=== PATIENT | male | born 1945 | race Hispanic/Latino ===

== ENCOUNTER → 2020-03-18 09:58 | Outpatient (CLI) | payer MEDICARE, SELFPAY ==
--- NOTE | 2020-03-18 20:17 | DI.NM.S_ITS ---
DATE OF SERVICE: 03/18/2020 PROCEDURE: Exercise perfusion study. INDICATION: AFib. RADIOPHARMACEUTICAL: 25.3 millicurie technetium-99m Myoview IV was injected at stress and 11.9 millicurie technetium-99m Myoview IV was injected at rest. CARDIAC STRESS: The patient underwent exercise perfusion study under the supervision of attending staff. The patient walked on Preston protocol for 9 minutes 10 seconds and achieved 95 percent of target heart rate, normal blood pressure response. Baseline EKG revealed sinus rhythm with poor R-wave progression, frequent PACs, as well as PVCs. During stress, PVCs got suppressed. However, patient has frequent PACs. There is suspicion for recurrence of AFib during exercise. In recovery, rhythm was sinus with return of frequent PVCs, as well as PACs. No obvious ischemic changes. No sustained ventricular tachycardia or AFib. No chest pain or anginal symptoms. RAW DATA: There is increased subdiaphragmatic activity. During rest, there was motion artifact seen, as well. GATED STUDY: Stress LV ejection fraction 64 percent and resting LV ejection fraction 60 percent without any obvious wall motion abnormalities. Resting end- diastolic volume 141 mL. TID ratio 0.95, which is within normal limits. Lung/heart ratio 0.35, which is within normal limits. MYOCARDIAL PERFUSION: The stress supine images revealed a small size, mildly decreased perfusion of basal inferior wall and inferoapex. Resting supine images reveal moderate size, mildly decreased perfusion of inferior wall, as well as inferior septum. During prone images, inferior wall and inferior apical defect got significantly improved. However, during prone images, there was new perfusion defect of mid to distal anterior wall and distal anteroseptum, which was not seen during stress supine and resting supine. CONCLUSION: No obvious reversible ischemia. Inferior wall, inferior septal, and inferior apical defect, which was seen during stress supine and resting supine images got significantly improved during prone images suggestive of diaphragmatic tissue attenuation artifact. On prone images, there was new perfusion defect of distal anterior wall and distal anterior septum, which was not seen during stress supine images, likely shifting tissue attenuation artifact. The patient has good exercise tolerance. No anginal symptoms. Preserved left ventricular function. Frequent PACs and PVCs at rest and suspicion for a short burst of atrial fibrillation during exercise. No ventricular tachycardia or sustained atrial fibrillation. Clinical correlation is recommended. Duane Deal - RONAN/jojo/[place] doc#: [id number]/job#: [id number] dd: 03/18/2020 17:15:00 dt: 03/18/2020 20:04:00 DICTATING /COPIES TO: Stefano Hernandez MD COPIES MNE: NADINE;
== END ==
PROVIDERS: PCP Student in an Organized Health Care Education/Training Program; Referring Provider Student in an Organized Health Care Education/Training Program; Visit Provider Student in an Organized Health Care Education/Training Program
DX: I48.91 Unspecified atrial fibrillation (principal)
CPT/HCPCS: 78452; 93017; A9502

== ENCOUNTER 2021-10-03 14:34 | Emergency (ER) | payer MEDICARE, SELFPAY ==
[2021-10-03] VITALS (18 sets, daily range): BP systolic 121–182; BP diastolic 72–113; PULSE 47–56; RESP 16–18; TEMP 36.4; O2SAT 94–99; BMI 27.4
--- NOTE | 2021-10-03 14:43 | DI.CT.S_ITS ---
PROCEDURE: CT ANGIO HEAD AND NECK INDICATIONS: Vision change right eye TECHNIQUE: Pre-contrast 4.5 mm thick sections acquired from the foramen magnum to the vertex. After the administration of intravenous contrast, 1 mm thick sections acquired from the aortic arch through the Cheesh-Na of Wright. Post-contrast 4.5 mm thick sections then re-acquired from the foramen magnum to the vertex. 3-dimensional fwpfcpa-qqzesxssk-ofehlyjgwi (MIP) and/or volume rendering reformats were acquired of the central intracranial vasculature and neck separately. COMPARISON: None. FINDINGS: Image quality: Excellent. BRAIN: CSF spaces: Ventricles are normal in size and shape. Basal cisterns are patent. No extra-axial fluid collections. Brain: No midline shift. No intracranial bleeds or masses. Montoya-white matter interface appears intact. Skull and face: Calvarium and facial bones appear intact, without suspicious lesions. Orbits appear normal. Sinuses: Mucosal thickening noted in the maxillary sinuses. The mastoids are clear. HEAD CT ANGIOGRAPHY: Anterior circulation: Intracranial internal carotid arteries are normal in flow. Atherosclerotic calcifications noted in the clinoid segment of the right internal carotid artery which causes short segment, high-grade stenosis. The flow within the paired anterior cerebral arteries is normal and symmetric. The flow within the middle cerebral arteries is normal and symmetric. The anterior communicating artery is seen. No aneurysms are seen. Posterior circulation: Visualized portions of the vertebral arteries demonstrate normal caliber, and join to form a normal appearing basilar artery. Flow within the posterior cerebral arteries is normal and symmetric. No aneurysms are seen. Dural sinuses demonstrate normal postcontrast enhancement. NECK CT ANGIOGRAPHY: Carotid system: The great vessels demonstrate a conventional anatomy as they arise from the aortic arch. The origins of the common carotid arteries appear patent. The common carotid arteries demonstrate normal caliber and courses. Atherosclerotic calcification noted in the origin of the right internal carotid artery which causes high-grade, approximately 70% stenosis of the vessel. Atherosclerotic calcification noted in the origin of the left internal carotid artery which causes mild, less than 50% stenosis. Posterior circulation: Calcified atherosclerotic plaque noted in the origin of the right vertebral artery which causes [id number] narrowing of the vessel. Origin of the left vertebral artery is fully patent. Patient is right vertebral artery dominant. The more superior extracranial portions of both vertebral arteries also demonstrate normal courses and calibers. They join to form a normal appearing basilar artery. Soft tissues: Visualized neck soft tissues demonstrate no suspicious abnormalities. Patchy consolidation and ground-glass opacities noted in the lung apices, right greater than left. Bones: No suspicious bony lesions. Spine degenerative disc disease and facet arthropathy.Visualized cervical spine appears normally aligned. IMPRESSION: 1. No acute intracranial disease process. 2. No large vessel occlusion, vascular dissection or aneurysm. 3. High-grade, approximately 70% stenosis of the origin of the right internal carotid artery. 4. 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 5. 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 6. Patchy consolidation and ground-glass opacities in the lung apices suspicious for pneumonia. Any quantitative measurements of stenosis were performed using NASCET criteria. Dictated by: Nat Greer MD, PhD on 10/03/2021 at 16:36 Approved by: Nat Greer MD, PhD on 10/03/2021 at 16:45
--- NOTE | 2021-10-03 15:25 | PC.NURSE ---
right eye, visual field cut to medial lower corner, can recognize that bottoms of letters on eye chart are missing/blocked. eye exam performed whhile both eyes are dilated.
[2021-10-03 15:36] LABS: Add Manual Diff / Slide Review NO; Basophils Absolute Auto 100 /uL (0-100); Basophils Percent Auto 0.9 % (0-2); Eosinophils Absolute Auto 300 /uL (0-450); Eosinophils Percent Auto 4.5 % (2-4); Hematocrit 42.6 % (41-53); Hemoglobin 14.5 g/dL (13.5-17.5); Lymphocytes Absolute Auto 2000 /uL (1100-4500); Lymphocytes Percent Auto 34.1 % (25-40); Mean Corpuscular Hemoglobin 32.6 PG (26-34); Mean Corpuscular Volume 95.8 fL (80-100); Monocytes Absolute Auto 800 /uL (0-900); Neutrophils Absolute Auto 2800 /uL (1500-7000); Neutrophils Percent Auto 46.5 % (50-75); Platelet Count 171 X10^3/uL (150-400); Red Blood Cell Count 4.45 X10^6/uL (4.5-5.9); Red Cell Distribution Width 14.2 % (11.6-14.8)
--- NOTE | 2021-10-03 15:53 | ED_ITS ---
HPI - Neuro Symptoms/Deficit <Julio Man PA-C - Last Filed: 10/03/21 20:08> General Chief Complaint: Neuro Symptoms/Deficit Stated Complaint: Vascular Assesment, Possible Stroke in Rt Eye Time Seen by Provider: 10/03/21 15:04 Source: patient Mode of arrival: Ambulatory History of Present Illness HPI Narrative: Patient is a 76-year-old male with a history of atrial fibrillation presenting to the emergency department today for evaluation of right eye visual changes. Patient states that he 1st noticed the loss of vision in his left lower quadrant his right eye approximately 5 days ago. He states that he was at his ophthalmology appointment when he was urged to come to the emergency department. Of note, patient states that he stopped taking his daily dose of 325 mg of aspirin approximately 1 month ago and states that he has not been on any daily anticoagulation since. Patient denies fever, chills, chest pain, cough, shortness of breath, nausea, vomiting, diarrhea, abdominal pain, dysuria, hematu abigail, dizziness, lightheadedness, generalized weakness, slurred speech, diaphoresis, heart palpitations, syncope, increased confusion, behavior abnormalities, or any other concerning symptoms. No further concerns reports this time. On Anticoagulants: No Related Data Previous Rx's Medication Instructions Recorded atorvastatin 40 mg tablet 40 mg PO DAILY #40 tab 10/03/21 clopidogrel 75 mg tablet (Plavix) 75 mg PO DAILY #21 tab 10/03/21 Allergies Allergy/AdvReac Type Severity Reaction Status Date / Time No Known Drug Allergies Allergy Verified 10/03/21 14:42 Review of Systems <Julio Man PA-C - Last Filed: 10/03/21 20:08> Constitutional Constitutional: Denies chills, Denies fatigue, Denies fever(s), Denies frequent falls, Denies lethargy and Denies weakness Eyes Eyes: Reports change in vision (Loss of vision in left lower quadrant of right eye), Denies eye discharge, Denies irritation, Reports loss of vision (Loss of vision and left lower quadrant of right eye) and Denies eye pain ENT Ears, Nose, Mouth, and Throat: Denies dizziness and Denies neck pain Cardiovascular Cardiovascular: Denies chest pain, Denies irregular heart rhythm, Denies lightheadedness, Denies palpitations, Denies dyspnea, Denies dyspnea on exertion and Denies orthopnea Respiratory Respiratory: Denies cough, Denies dyspnea, Denies dyspnea on exertion and Denies wheezing Gastrointestinal Gastrointestinal: Denies abdominal pain, Denies change in bowel habits, Denies diarrhea, Denies nausea and Denies vomiting Genitourinary Genitourinary: Denies hematuria, Denies flank pain, Denies urinary incontinence and Denies urinary urgency Musculoskeletal Musculoskeletal: Denies back pain, Denies muscle weakness, Denies neck pain, Denies numbness and Denies tingling Integumentary/Breasts Skin/Breast: Denies pruritus, Denies erythema, Denies rash and Denies wounds Neurologic Neurologic: Denies behavioral changes, Denies confusion, Denies dizziness, Denies frequent falls, Reports loss of vision (Loss of vision and left lower quadrant of right eye), Denies numbness, Denies tingling and Denies weakness Psychiatric Psychiatric: Denies behavioral changes and Denies confusion Endocrine Endocrine: Denies fatigue and Denies palpitations Hematologic/Lymphatic On Anticoagulants: No Allergic/Immunologic Allergic/Immunologic: Denies wheezing Patient History <Julio Man PA-C - Last Filed: 10/03/21 20:08> Medical History Atrial fibrillation Bone tumor Gout Surgical History No pertinent past surgical history Family History (Updated 10/03/21 @ 18:55 by Grzegorz Falcon DO) Father Cancer Mother CVA (cerebral vascular accident) Social History Smoking Status: Former smoker Smoking Status: Former smoker tobacco type: pipe alcohol intake frequency: a few times a week Alcohol type: wine Substance Use Type: does not use Exam <Julio Man PA-C - Last Filed: 10/03/21 20:08> Narrative Exam Narrative: GENERAL: year old patient appears stated age. Well-developed patient, in no acute distress. HEAD: Atraumatic. Normocephalic. EYES: Pupils dilated (patient states that his eyes were dilated at ophthalmology appointment). Extraocular motions intact. No scleral icterus. No injection or drainage. ENT: Nose without bleeding, purulent drainage. Throat without erythema, tonsillar hypertrophy or exudate. Airway patent. NECK: Trachea midline. Non tender CARDIOVASCULAR: Rate irregularly irregular without murmurs, gallops, or rubs. RESPIRATORY: Clear to auscultation. Breath sounds equal bilaterally. No wheezes, rales, or rhonchi. GASTROINTESTINAL: Abdomen soft, non-tender, nondistended. EXTREMITIES: No edema or joint tenderness. BACK: Nontender without deformity or crepitance. No flank tenderness. NEURO: AOx3. SKIN: No rash or erythema of visible areas Initial Vital Signs Initial Vital Signs: Vital Signs Temperature 97.6 F 10/03/21 14:38 Pulse Rate 56 L 10/03/21 14:38 Respiratory Rate 16 10/03/21 14:38 Blood Pressure 135/79 10/03/21 14:38 Pulse Oximetry 99 10/03/21 14:38 <Susana Roberson DO - Last Filed: 10/04/21 07:09> Initial Vital Signs Initial Vital Signs: Vital Signs Temperature 97.6 F 10/03/21 14:38 Pulse Rate 56 L 10/03/21 14:38 Respiratory Rate 16 10/03/21 14:38 Blood Pressure 135/79 10/03/21 14:38 Pulse Oximetry 99 10/03/21 14:38 Course <Julio Man PA-C - Last Filed: 10/03/21 20:08> Course Course Narrative: CBC, CMP, urine drug screen, urinalysis, troponin, CK-MB, CTA of the head neck, COVID tests, EKG obtained. Treatment options discussed with Dr. Falcon and patient would prefer to not stay overnight for MRI in the morning. Orders Ordered: Discontinued Medications Aspirin (Aspirin 325 Mg Tablet) 325 mg PO NOW ONE Stop: 10/03/21 16:06 Last Admin: 10/03/21 16:50 Dose: 325 mg Documented by: LASHAWN Clopidogrel Bisulfate (Clopidogrel 75 Mg Tablet) 75 mg PO NOW ONE Stop: 10/03/21 18:51 Last Admin: 10/03/21 19:12 Dose: 75 mg Documented by: SYDNEY Consultations Consultation #1: Consultation with Dr. Falcon (hospitalist). States patient could stay overnight for MRI in the morning, or patient could be discharged with outpatient medication management. He states that he will come down to the emergency department to discuss medication options with the patient. He states after discussion patient would be appropriate for discharge. Time: 17:26 Vital Signs Vital signs: Vital Signs - 8 hr 10/03/21 14:38 10/03/21 15:27 10/03/21 15:28 Temperature 97.6 F Pulse Rate 56 L 51 L 54 L Respiratory Rate 16 17 Blood Pressure 135/79 126/77 Pulse Oximetry 99 97 97 10/03/21 15:30 10/03/21 15:44 10/03/21 16:00 Temperature Pulse Rate 49 L 51 L Respiratory Rate Blood Pressure 128/76 129/72 Pulse Oximetry 97 94 10/03/21 16:12 10/03/21 16:13 10/03/21 16:30 Temperature Pulse Rate 54 L 52 L 53 L Respiratory Rate 17 Blood Pressure 131/74 Pulse Oximetry 97 96 96 10/03/21 16:31 10/03/21 17:00 10/03/21 17:01 Temperature Pulse Rate 49 L 49 L 49 L Respiratory Rate 18 Blood Pressure 121/74 144/72 H Pulse Oximetry 95 95 95 10/03/21 17:30 10/03/21 17:31 10/03/21 18:00 Temperature Pulse Rate 48 L 49 L 54 L Respiratory Rate 16 16 Blood Pressure 164/79 H 174/89 H Pulse Oximetry 98 98 97 10/03/21 18:30 10/03/21 19:00 10/03/21 19:19 Temperature Pulse Rate 49 L 47 L Respiratory Rate Blood Pressure 182/113 H 176/88 H Pulse Oximetry 98 97 <Susana Roberson, DO - Last Filed: 10/04/21 07:09> Orders Ordered: Discontinued Medications Aspirin (Aspirin 325 Mg Tablet) 325 mg PO NOW ONE Stop: 10/03/21 16:06 Last Admin: 10/03/21 16:50 Dose: 325 mg Documented by: LASHAWN Clopidogrel Bisulfate (Clopidogrel 75 Mg Tablet) 75 mg PO NOW ONE Stop: 10/03/21 18:51 Last Admin: 10/03/21 19:12 Dose: 75 mg Documented by: SYDNEY Vital Signs Vital signs: Vital Signs - 8 hr 10/03/21 14:38 10/03/21 15:27 10/03/21 15:28 Temperature 97.6 F Pulse Rate 56 L 51 L 54 L Respiratory Rate 16 17 Blood Pressure 135/79 126/77 Pulse Oximetry 99 97 97 02/11/22 15:30 10/03/21 15:44 10/03/21 16:00 Temperature Pulse Rate 49 L 51 L Respiratory Rate Blood Pressure 128/76 129/72 Pulse Oximetry 97 94 10/03/21 16:12 10/03/21 16:13 10/03/21 16:30 Temperature Pulse Rate 54 L 52 L 53 L Respiratory Rate 17 Blood Pressure 131/74 Pulse Oximetry 97 96 96 10/03/21 16:31 10/03/21 17:00 10/03/21 17:01 Temperature Pulse Rate 49 L 49 L 49 L Respiratory Rate 18 Blood Pressure 121/74 144/72 H Pulse Oximetry 95 95 95 10/03/21 17:30 10/03/21 17:31 10/03/21 18:00 Temperature Pulse Rate 48 L 49 L 54 L Respiratory Rate 16 16 Blood Pressure 164/79 H 174/89 H Pulse Oximetry 98 98 97 10/03/21 18:30 10/03/21 19:00 10/03/21 19:19 Temperature Pulse Rate 49 L 47 L Respiratory Rate Blood Pressure 182/113 H 176/88 H Pulse Oximetry 98 97 MDM - Neuro Symptoms/Deficit <Julio Man PA-C - Last Filed: 10/03/21 20:08> Lab Data Result diagrams: 10/03/21 15:10 10/03/21 15:10 Labs: Lab Results 10/03/21 10/03/21 10/03/21 Range/Units 15:10 15:10 17:20 WBC 6.0 (4.5-11.0) X10^3/uL RBC 4.45 L (4.5-5.9) X10^6/uL Hgb 14.5 (13.5-17.5) g/dL Hct 42.6 (41-53) % MCV 95.8 (80-100) fL MCH 32.6 (26-34) PG MCHC 34.0 (30-36) % RDW 14.2 (11.6-14.8) % Plt Count 171 (150-400) X10^3/uL Neut % (Auto) 46.5 L (50-75) % Lymph % (Auto) 34.1 (25-40) % [place] % (Auto) 14.0 (3-14) % Eos % (Auto) 4.5 H (2-4) % Baso % (Auto) 0.9 (0-2) % Neut # (Auto) 2800 (7181-6502) /uL Lymph # (Auto) 2000 (8787-4910) /uL [place] # (Auto) 800 (0-900) /uL Eos # (Auto) 300 (0-450) /uL Baso # (Auto) 100 (0-100) /uL Sodium 139 (137-145) mmol/L Potassium 4.8 (3.4-5.1) mmol/L Chloride 108 H (98-107) mmol/L Carbon Dioxide 28 (22-32) mmol/L BUN 26 H (9-20) mg/dL Creatinine 1.09 (0.66-1.25) mg/dL Estimated GFR > 60.0 (>60) mL/min BUN/Creatinine Ratio 23.9 H (6-22) Glucose 110 (80-110) mg/dL Calcium 8.9 (8.4-10.2) mg/dL Total Bilirubin 0.7 (0.2-1.3) mg/dL AST 37 (17-59) IU/L ALT 24 (<50) IU/L Alkaline Phosphatase 78 (38-126) U/L Total Creatine Kinase 187 H (55-170) U/L CK-MB (CK-2) 1.72 (<2.37) ng/mL CK-MB (CK-2) Rel Index 0.9 L (1.5-5.0) % Troponin I 0.015 (0.01-0.034) ng/mL Total Protein 7.0 (6.3-8.2) g/dL Albumin 3.9 (3.5-5.0) g/dL Globulin 3.1 (1.7-4.1) g/dL Albumin/Globulin Ratio 1.3 (1.0-2.8) Urine RBC (0-5/HPF) Urine WBC (0-5/HPF) Urine Bacteria (None) Ur Culture Indicated? U Opiates 300ng/mL cut Negative (Negative) Ur Oxycodone Screen Negative (Negative) Urine Methadone Screen Negative (Negative) Ur Barbiturates Screen Negative (Negative) U Tricyclic Antidepress Negative (Negative) Ur Phencyclidine Scrn Negative (Negative) Ur Amphetamines Screen Negative (Negative) U Methamphetamines Scrn Negative (Negative) Ur MDMA Scrn (Ecstasy) Negative (Negative) U Benzodiazepines Scrn Negative (Negative) Urine Cocaine Screen Negative (Negative) U Marijuana (THC) Screen Negative (Negative) SARS-CoV-2 (PCR) (Negative) 10/03/21 10/03/21 Range/Units 17:20 17:20 WBC (4.5-11.0) X10^3/uL RBC (4.5-5.9) X10^6/uL Hgb (13.5-17.5) g/dL Hct (41-53) % MCV (80-100) fL MCH (26-34) PG MCHC (30-36) % RDW (11.6-14.8) % Plt Count (150-400) X10^3/uL Neut % (Auto) (50-75) % Lymph % (Auto) (25-40) % [place] % (Auto) (3-14) % Eos % (Auto) (2-4) % Baso % (Auto) (0-2) % Neut # (Auto) (1007-4922) /uL Lymph # (Auto) (5701-0594) /uL [place] # (Auto) (0-900) /uL Eos # (Auto) (0-450) /uL Baso # (Auto) (0-100) /uL Sodium (137-145) mmol/L Potassium (3.4-5.1) mmol/L Chloride (98-107) mmol/L Carbon Dioxide (22-32) mmol/L BUN (9-20) mg/dL Creatinine (0.66-1.25) mg/dL Estimated GFR (>60) mL/min BUN/Creatinine Ratio (6-22) Glucose (80-110) mg/dL Calcium (8.4-10.2) mg/dL Total Bilirubin (0.2-1.3) mg/dL AST (17-59) IU/L ALT (<50) IU/L Alkaline Phosphatase (38-126) U/L Total Creatine Kinase (55-170) U/L CK-MB (CK-2) (<2.37) ng/mL CK-MB (CK-2) Rel Index (1.5-5.0) % Troponin I (0.01-0.034) ng/mL Total Protein (6.3-8.2) g/dL Albumin (3.5-5.0) g/dL Globulin (1.7-4.1) g/dL Albumin/Globulin Ratio (1.0-2.8) Urine RBC None seen (0-5/HPF) Urine WBC None seen (0-5/HPF) Urine Bacteria None seen (None) Ur Culture Indicated? Cult not indicated U Opiates 300ng/mL cut (Negative) Ur Oxycodone Screen (Negative) Urine Methadone Screen (Negative) Ur Barbiturates Screen (Negative) U Tricyclic Antidepress (Negative) Ur Phencyclidine Scrn (Negative) Ur Amphetamines Screen (Negative) U Methamphetamines Scrn (Negative) Ur MDMA Scrn (Ecstasy) (Negative) U Benzodiazepines Scrn (Negative) Urine Cocaine Screen (Negative) U Marijuana (THC) Screen (Negative) SARS-CoV-2 (PCR) Negative (Negative) Point of Care Testing Glucose POC 110 Urine Dip Bedside Urine Glucose Negative Bedside Urine Bilirubin - Negative Bedside Urine Ketone - Negative Urine Specific [place] 1.015 Bedside Urine Occult Blood - Negative Bedside Urine pH 6 Bedside Urine Protein - Negative Bedside Urine Urobilinogen - Negative Bedside Urine Nitrite - Negative Bedside Urine Leukocytes - Negative Esterase Imaging Data CTA - brain/neck: Radiologist's Impression: PROCEDURE:? CT ANGIO HEAD AND NECK ? INDICATIONS:? Vision change right eye ? TECHNIQUE:? Pre-contrast 4.5 mm thick sections acquired from the foramen magnum to the vertex.? After the administration of intravenous contrast, 1 mm thick sections acquired from the aortic arch through the [place] of [place].? Post-contrast 4.5 mm thick sections then re- acquired from the foramen magnum to the vertex.? 3-dimensional oqwuoih-azaazhhsz-izcuffmewp (MIP) and/or volume rendering reformats were acquired of the central intracranial vasculature and neck separately. ? COMPARISON:? None. ? FINDINGS:? Image quality:? Excellent.? ? BRAIN:? CSF spaces:? Ventricles are normal in size and shape.? Basal cisterns are patent.? No extra-axial fluid collections.? ? Brain:? No midline shift.? No intracranial bleeds or masses.? [place]-white matter interface appears intact.? ? Skull and face:? Calvarium and facial bones appear intact, without suspicious lesions.? Orbits appear normal.? ? Sinuses:? Mucosal thickening noted in the maxillary sinuses.? The mastoids are clear.? ? HEAD CT ANGIOGRAPHY:? Anterior circulation:? Intracranial internal carotid arteries are normal in flow. Atherosclerotic calcifications noted in the clinoid segment of the right internal carotid artery which causes short segment, high-grade stenosis.? The flow within the paired anterior cerebral arteries is normal and symmetric.? The flow within the middle cerebral arteries is normal and symmetric.? The anterior communicating artery is seen.? No aneurysms are seen.? ? Posterior circulation:? Visualized portions of the vertebral arteries demonstrate normal caliber, and join to form a normal appearing basilar artery.? Flow within the posterior cerebral arteries is normal and symmetric.? No aneurysms are seen. ? Dural sinuses demonstrate normal postcontrast enhancement. ? ? NECK CT ANGIOGRAPHY:? Carotid system:? The great vessels demonstrate a conventional anatomy as they arise from the aortic arch.? The origins of the common carotid arteries appear patent.? The common carotid arteries demonstrate normal caliber and courses.? Atherosclerotic calcification noted in the origin of the right internal carotid artery which causes high- grade, approximately 70% stenosis of the vessel.? Atherosclerotic calcification noted in the origin of the left internal carotid artery which causes mild, less than 50% stenosis. ? Posterior circulation:? Calcified atherosclerotic plaque noted in the origin of the right vertebral artery which causes yhrr-ar-plcrdqro narrowing of the vessel.? Origin of the left vertebral artery is fully patent.? Patient is right vertebral artery dominant.? The more superior extracranial portions of both vertebral arteries also demonstrate normal courses and calibers.? They join to form a normal appearing basilar artery.? ? Soft tissues:? Visualized neck soft tissues demonstrate no suspicious abnorm alities.? Patchy consolidation and ground-glass opacities noted in the lung apices, right greater than left.? ? Bones:? No suspicious bony lesions.? Spine degenerative disc disease and facet arthropathy.Visualized cervical spine appears normally aligned.? ? ? IMPRESSION:? ? 1. No acute intracranial disease process. ? 2. No large vessel occlusion, vascular dissection or aneurysm. ? 3. High-grade, approximately 70% stenosis of the origin of the right internal carotid artery. ? 4. 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 ? 5. Tnas-po-wokrrvxg stenosis of the origin of the right vertebral artery. ? 6. Patchy consolidation and ground-glass opacities in the lung apices suspicious for pneumonia. ? Any quantitative measurements of stenosis were performed using NASCET criteria.? ? ? Dictated by: Nat Greer MD, PhD on 10/03/2021 at 16:36 ? ? Approved by: Nat Greer MD, PhD on 10/03/2021 at 16:45 ? MDM Narrative Medical decision making narrative: To consider retinal artery occlusion versus CVA versus TIA versus amaurosis fugax versus retinal detachment. Overall, physical examination was reassuring. Discussed results of CT with patient, the patient was able have consultation with Dr. Falcon regarding medication management for his conditions. Patient agreed to outpatient medication management. I urged the patient to follow-up with his primary care provider for further evaluation. Patient expresses understanding and agrees to plan, stating that he would also be in touch with his materials engineer. He states that this time he would like to be discharged home and is stable for discharge. Strict return precautions were discussed with the patient prior to discharge. <Susana Roberson, DO - Last Filed: 10/04/21 07:09> Lab Data Labs: Lab Results 10/03/21 10/03/21 10/03/21 Range/Units 15:10 15:10 17:20 WBC 6.0 (4.5-11.0) X10^3/uL RBC 4.45 L (4.5-5.9) X10^6/uL Hgb 14.5 (13.5-17.5) g/dL Hct 42.6 (41-53) % MCV 95.8 (80-100) fL MCH 32.6 (26-34) PG MCHC 34.0 (30-36) % RDW 14.2 (11.6-14.8) % Plt Count 171 (150-400) X10^3/uL Neut % (Auto) 46.5 L (50-75) % Lymph % (Auto) 34.1 (25-40) % [place] % (Auto) 14.0 (3-14) % Eos % (Auto) 4.5 H (2-4) % Baso % (Auto) 0.9 (0-2) % Neut # (Auto) 2800 (8162-1388) /uL Lymph # (Auto) 2000 (0920-0324) /uL [place] # (Auto) 800 (0-900) /uL Eos # (Auto) 300 (0-450) /uL Baso # (Auto) 100 (0-100) /uL Sodium 139 (137-145) mmol/L Potassium 4.8 (3.4-5.1) mmol/L Chloride 108 H (98-107) mmol/L Carbon Dioxide 28 (22-32) mmol/L BUN 26 H (9-20) mg/dL Creatinine 1.09 (0.66-1.25) mg/dL Estimated GFR > 60.0 (>60) mL/min BUN/Creatinine Ratio 23.9 H (6-22) Glucose 110 (80-110) mg/dL Calcium 8.9 (8.4-10.2) mg/dL Total Bilirubin 0.7 (0.2-1.3) mg/dL AST 37 (17-59) IU/L ALT 24 (<50) IU/L Alkaline Phosphatase 78 (38-126) U/L Total Creatine Kinase 187 H (55-170) U/L CK-MB (CK-2) 1.72 (<2.37) ng/mL CK-MB (CK-2) Rel Index 0.9 L (1.5-5.0) % Troponin I 0.015 (0.01-0.034) ng/mL Total Protein 7.0 (6.3-8.2) g/dL Albumin 3.9 (3.5-5.0) g/dL Globulin 3.1 (1.7-4.1) g/dL Albumin/Globulin Ratio 1.3 (1.0-2.8) Urine RBC (0-5/HPF) Urine WBC (0-5/HPF) Urine Bacteria (None) Ur Culture Indicated? U Opiates 300ng/mL cut Negative (Negative) Ur Oxycodone Screen Negative (Negative) Urine Methadone Screen Negative (Negative) Ur Barbiturates Screen Negative (Negative) U Tricyclic Antidepress Negative (Negative) Ur Phencyclidine Scrn Negative (Negative) Ur Amphetamines Screen Negative (Negative) U Methamphetamines Scrn Negative (Negative) Ur MDMA Scrn (Ecstasy) Negative (Negative) U Benzodiazepines Scrn Negative (Negative) Urine Cocaine Screen Negative (Negative) U Marijuana (THC) Screen Negative (Negative) SARS-CoV-2 (PCR) (Negative) 02/11/22 02/11/22 Range/Units 17:20 17:20 WBC (4.5-11.0) X10^3/uL RBC (4.5-5.9) X10^6/uL Hgb (13.5-17.5) g/dL Hct (41-53) % MCV (80-100) fL MCH (26-34) PG MCHC (30-36) % RDW (11.6-14.8) % Plt Count (150-400) X10^3/uL Neut % (Auto) (50-75) % Lymph % (Auto) (25-40) % [place] % (Auto) (3-14) % Eos % (Auto) (2-4) % Baso % (Auto) (0-2) % Neut # (Auto) (9511-5529) /uL Lymph # (Auto) (4953-7759) /uL [place] # (Auto) (0-900) /uL Eos # (Auto) (0-450) /uL Baso # (Auto) (0-100) /uL Sodium (137-145) mmol/L Potassium (3.4-5.1) mmol/L Chloride (98-107) mmol/L Carbon Dioxide (22-32) mmol/L BUN (9-20) mg/dL Creatinine (0.66-1.25) mg/dL Estimated GFR (>60) mL/min BUN/Creatinine Ratio (6-22) Glucose (80-110) mg/dL Calcium (8.4-10.2) mg/dL Total Bilirubin (0.2-1.3) mg/dL AST (17-59) IU/L ALT (<50) IU/L Alkaline Phosphatase (38-126) U/L Total Creatine Kinase (55-170) U/L CK-MB (CK-2) (<2.37) ng/mL CK-MB (CK-2) Rel Index (1.5-5.0) % Troponin I (0.01-0.034) ng/mL Total Protein (6.3-8.2) g/dL Albumin (3.5-5.0) g/dL Globulin (1.7-4.1) g/dL Albumin/Globulin Ratio (1.0-2.8) Urine RBC None seen (0-5/HPF) Urine WBC None seen (0-5/HPF) Urine Bacteria None seen (None) Ur Culture Indicated? Cult not indicated U Opiates 300ng/mL cut (Negative) Ur Oxycodone Screen (Negative) Urine Methadone Screen (Negative) Ur Barbiturates Screen (Negative) U Tricyclic Antidepress (Negative) Ur Phencyclidine Scrn (Negative) Ur Amphetamines Screen (Negative) U Methamphetamines Scrn (Negative) Ur MDMA Scrn (Ecstasy) (Negative) U Benzodiazepines Scrn (Negative) Urine Cocaine Screen (Negative) U Marijuana (THC) Screen (Negative) SARS-CoV-2 (PCR) Negative (Negative) Point of Care Testing Glucose POC 110 Urine Dip Bedside Urine Glucose Negative Bedside Urine Bilirubin - Negative Bedside Urine Ketone - Negative Urine Specific [place] 1.015 Bedside Urine Occult Blood - Negative Bedside Urine pH 6 Bedside Urine Protein - Negative Bedside Urine Urobilinogen - Negative Bedside Urine Nitrite - Negative Bedside Urine Leukocytes - Negative Esterase ECG Data Interpretation: BOTNICK-Atrial fibrillation rate [address] changes Discharge Plan Departure Patient Disposition: Home Clinical Impression: Carotid artery stenosis Activity Restrictions/Additional Instructions: *You have been diagnosed with carotid artery stenosis *What to do: *Please continue to take your regular medications as directed. [X] New medication prescriptions sent to your pharmacy: [facility] - Plavix, Atorvastatin [ ] New medication written as a paper prescription [ ] No new medications given I have sent prescriptions for Plavix and atorvastatin to preferred pharmacy. Please take these medications as directed. Ensure that are in touch with the primary care provider to keep them in the loop regarding your visit today in the emergency department. Additionally, it is important to discuss this visit with your materials engineer. Per our discussion with Dr. Falcon it is recommended that he begin taking a daily 81 mg aspirin. Please do not hesitate to return to the emergency department if you experience worsening changes in your vision, weakness, slurred speech, or any other concerning symptoms. *Please follow up with your primary care provider in 2-3 days, call for an appointment. Let them know you were seen in the Emergency Department and that we ask that you be seen in follow up. We will electronically transmit a record of today's note if your PCP is in our system *If you do not have a primary care provider please contact the [facility] Resource line at [phone]. They will ask some questions about your medical history and help get you set up with a doctor in the community. *Return to Emergency Department if you should have any new, worsening or concerning symptoms, such as [fever greater than 101 F, shaking chills, worsening pain, persistent vomiting or other bothersome symptoms] Prescriptions: New clopidogrel [Plavix] 75 mg tablet 75 mg PO DAILY Qty: 21 0RF atorvastatin 40 mg tablet 40 mg PO DAILY Qty: 40 0RF Referrals: Alex Rodgers MD [Primary Care Provider] - <Susana Roberson DO - Last Filed: 10/04/21 07:09> [facility]: I discussed all findings with the patient [and /spouse mother], Education has been performed regarding treatment plan, diagnosis, warning signs and symptoms and all concerns have been addressed. Verbally agree with and understood all of the above.
[2021-10-03 16:00] LABS: Alanine Aminotransferase 24 IU/L (<50); Albumin 3.9 g/dL (3.5-5.0); Albumin Globulin Ratio 1.3 (1.0-2.8); Alkaline Phosphatase 78 U/L (38-126); Aspartate Aminotransferase 37 IU/L (17-59); BUN Creatinine Ratio 23.9 (6-22); Bilirubin Total 0.7 mg/dL (0.2-1.3); Blood Urea Nitrogen 26 mg/dL (9-20); Calcium 8.9 mg/dL (8.4-10.2); Carbon Dioxide 28 mmol/L (22-32); Chloride 108 mmol/L (98-107); Creatine Kinase 187 U/L (55-170); Estimated Glomerular Filt Rate > 60.0 mL/min (>60); Globulin 3.1 g/dL (1.7-4.1); Glucose 110 mg/dL (80-110); HEMOLYSIS 24 (0-50); Potassium 4.8 mmol/L (3.4-5.1); Sodium 139 mmol/L (137-145)
[2021-10-03 16:12] LABS: Troponin I 0.015 ng/mL (0.01-0.034)
[2021-10-03 16:15] LABS: CKMB % Relative Index 0.9 % (1.5-5.0); Creatine Kinase MB 1.72 ng/mL (<2.37)
[2021-10-03] MEDS: ASPIRIN 325 MG TABLET PO (16:50)
[2021-10-03 17:50] LABS: UR Morphine/Opiate cutoff 300 Negative (Negative); Ur Creatinine Normal (Normal); Ur Specific Gravity Normal (Normal); Urine Amphetamines Negative (Negative); Urine Barbiturates Negative (Negative); Urine Benzodiazepines Negative (Negative); Urine Cocaine Negative (Negative); Urine MDMA Negative (Negative); Urine Methadone Negative (Negative); Urine Methamphetamines Negative (Negative); Urine Oxycodone Negative (Negative); Urine Phencyclidine Negative (Negative); Urine Tetrahydrocannabinol Negative (Negative); Urine Tricyclic Antidepressant Negative (Negative); Urine pH Normal (Normal)
[2021-10-03 17:52] LABS: Bacteria Urine None Seen; Culture Indicated Urine Cult Not Indicated; RBC Urine None Seen (0-5/HPF); WBC Urine None Seen (0-5/HPF)
[2021-10-03 17:59] LABS: COVID19 -Nasal RAPID Negative (Negative)
--- NOTE | 2021-10-03 18:52 | P.CONS_ITS ---
History of Present Illness Consult details Date Patient Seen: 10/03/21 Time Patient Seen: 18:52 Chief complaint: Vascular Assesment, Possible Stroke in Rt Eye Narrative: 76 M with pmh of atrial fibrillation, unknown type and gout presented to the emergency room with visual changes starting 5 days ago. Patient states that in his right eye in 1 corner of his visual field he sees a maria blur. He went to see his primary care doctor who said that he should see an physician office specialist. He saw the physician office specialist today who sent him to the emergency room. The patient states that the physician office specialist told him that he could see decreased blood flow to his retina. No other information from the physician office specialist is available at this time. He denies any slurred speech, weakness, facial droop, numbness, tingling. He denies any facial numbness. He denies any fevers, chills, chest pain, shortness of breath, nausea, vomiting, abdominal pain, lower extremity edema. His clerical assistant is currently in [place], whom he sees for atrial fibrillation. The patient had been on full-dose aspirin for stroke prevention up until a month ago when he started reading that many people did not need to take aspirin for stroke prevention and he decided to stop. In the emergency room, the patient was mildly hypertensive, slightly bradycardic in atrial fibrillation but had no other symptoms other than his continued visual changes. Laboratory evaluation was unremarkable. Urinalysis was not consistent with an infection. Urine drug screen was negative. COVID-[address] angiogram was performed of his head and neck which showed no acute intracranial processes, and no large vessel occlusion dissection or aneurysm. There was noted to be high-grade 70% stenosis of the right ICA as well as stenosis of the right vertebral artery. Incidentally found was patchy consolidation and ground-glass opacities of his lung apices. Patient states that this was investigated previously and found to be lung scarring. Meds Home Medications and Allergies Home Medications Medication Instructions Recorded Confirmed Type atorvastatin 40 mg tablet 40 mg PO DAILY #40 tab 10/03/21 Rx clopidogrel 75 mg tablet (Plavix) 75 mg PO DAILY #21 tab 10/03/21 Rx Allergies Allergy/AdvReac Type Severity Reaction Status Date / Time No Known Drug Allergies Allergy Verified 10/03/21 14:42 Review of Systems Review of Systems Narrative: All other systems reviewed with the patient and are negative unless otherwise stated. Exam Vital Signs (past 8 hours): - 10/03/21 14:38 10/03/21 15:27 10/03/21 15:28 Temperature 97.6 F Pulse Rate 56 L 51 L 54 L Respiratory Rate 16 17 Blood Pressure 135/79 126/77 Pulse Oximetry 99 97 97 10/03/21 15:30 10/03/21 15:44 10/03/21 16:00 Temperature Pulse Rate 49 L 51 L Respiratory Rate Blood Pressure 128/76 129/72 Pulse Oximetry 97 94 10/03/21 16:12 10/03/21 16:13 10/03/21 16:30 Temperature Pulse Rate 54 L 52 L 53 L Respiratory Rate 17 Blood Pressure 131/74 Pulse Oximetry 97 96 96 10/03/21 16:31 10/03/21 17:00 10/03/21 17:01 Temperature Pulse Rate 49 L 49 L 49 L Respiratory Rate 18 Blood Pressure 121/74 144/72 H Pulse Oximetry 95 95 95 Oxygen Delivery Method Room Air Narrative Exam Narrative: GENERAL APPEARANCE: Well developed, well nourished, in no acute distress. SKIN: Inspection of the skin reveals no rashes, ulcerations or petechiae. HEENT: Normocephalic atraumatic, extraocular muscles are intact, oropharynx is clear and mucous membranes are moist, neck is supple without adenopathy NECK: Supple and symmetric. There was no thyroid enlargement, and no tenderness, or masses were felt. CHEST: Normal AP diameter and normal contour without any kyphoscoliosis. LUNGS: Auscultation of the lungs revealed no wheezes, rhonchi, or rales. CARDIOVASCULAR: There was a regular rate and rhythm without any murmurs, gallops, rubs. Peripheral pulses were 2+ and symmetric. ABDOMEN: Soft and nontender with normal bowel sounds. No ascites was noted. MUSCULOSKELETAL: There was no tenderness or effusions noted. Muscle strength and tone were normal. EXTREMITIES: No cyanosis, clubbing or edema. NEUROLOGIC: Alert and oriented x 3. Normal affect. Gait was normal. Strength is +5/5 in the Upper Extremities and Lower Extremities Bilaterally. Sensation to touch was normal. Per stroke scale scoring NIHSS is 0 (though he does report small visual field deficit as per HPI though this did not affect his ability to see / count fingers). Objective ECG Impression: slow afib without ischemia, rate 47. Imaging CT scan - head: Radiologist's impression: IMPRESSION:? ? 1. No acute intracranial disease process. ? 2. No large vessel occlusion, vascular dissection or aneurysm. ? 3. High-grade, approximately 70% stenosis of the origin of the right internal carotid artery. ? 4. 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 ? 5. [id number] stenosis of the origin of the right vertebral artery. ? 6. Patchy consolidation and ground-glass opacities in the lung apices suspicious for pneumonia. ? Any quantitative measurements of stenosis were performed using NASCET criteria. Labs Result Diagrams: 10/03/21 15:10 10/03/21 15:10 Labs: Laboratory Results - last 24 hr 10/03/21 10/03/21 10/03/21 15:10 15:10 17:20 WBC 6.0 RBC 4.45 L Hgb 14.5 Hct 42.6 MCV 95.8 MCH 32.6 MCHC 34.0 RDW 14.2 Plt Count 171 Neut % (Auto) 46.5 L Lymph % (Auto) 34.1 [place] % (Auto) 14.0 Eos % (Auto) 4.5 H Baso % (Auto) 0.9 Neut # (Auto) 2800 Lymph # (Auto) 2000 [place] # (Auto) 800 Eos # (Auto) 300 Baso # (Auto) 100 Sodium 139 Potassium 4.8 Chloride 108 H Carbon Dioxide 28 BUN 26 H Creatinine 1.09 Estimated GFR > 60.0 BUN/Creatinine Ratio 23.9 H Glucose 110 Calcium 8.9 Total Bilirubin 0.7 AST 37 ALT 24 Alkaline Phosphatase 78 Total Creatine Kinase 187 H CK-MB (CK-2) 1.72 CK-MB (CK-2) Rel Index 0.9 L Troponin I 0.015 Total Protein 7.0 Albumin 3.9 Globulin 3.1 Albumin/Globulin Ratio 1.3 Urine RBC Urine WBC Urine Bacteria Ur Culture Indicated? U Opiates 300ng/mL cut Negative Ur Oxycodone Screen Negative Urine Methadone Screen Negative Ur Barbiturates Screen Negative U Tricyclic Antidepress Negative Ur Phencyclidine Scrn Negative Ur Amphetamines Screen Negative U Methamphetamines Scrn Negative Ur MDMA Scrn (Ecstasy) Negative U Benzodiazepines Scrn Negative Urine Cocaine Screen Negative U Marijuana (THC) Screen Negative SARS-CoV-2 (PCR) 10/03/21 10/03/21 17:20 17:20 WBC RBC Hgb Hct MCV MCH MCHC RDW Plt Count Neut % (Auto) Lymph % (Auto) [place] % (Auto) Eos % (Auto) Baso % (Auto) Neut # (Auto) Lymph # (Auto) [place] # (Auto) Eos # (Auto) Baso # (Auto) Sodium Potassium Chloride Carbon Dioxide BUN Creatinine Estimated GFR BUN/Creatinine Ratio Glucose Calcium Total Bilirubin AST ALT Alkaline Phosphatase Total Creatine Kinase CK-MB (CK-2) CK-MB (CK-2) Rel Index Troponin I Total Protein Albumin Globulin Albumin/Globulin Ratio Urine RBC None seen Urine WBC None seen Urine Bacteria None seen Ur Culture Indicated? Cult not indicated U Opiates 300ng/mL cut Ur Oxycodone Screen Urine Methadone Screen Ur Barbiturates Screen U Tricyclic Antidepress Ur Phencyclidine Scrn Ur Amphetamines Screen U Methamphetamines Scrn Ur MDMA Scrn (Ecstasy) U Benzodiazepines Scrn Urine Cocaine Screen U Marijuana (THC) Screen SARS-CoV-2 (PCR) Negative [facility] Medical History Atrial fibrillation Bone tumor Gout Surgical History No pertinent past surgical history Family History Father Cancer Mother CVA (cerebral vascular accident) Tobacco & Substance Use Smoking Status: Former smoker alcohol intake: current (<2 drinks 4-5 times per week) substance use type: does not use Assessment & Plan Assessment & Plan narrative: ?1. Vision loss, suspect Retinal artery occlusion, less likely CVA - patient decision to start asa 81 mg, plavix 75 mg x21 days, and lipitor 40 mg. We discussed a range of options for management. It is unclear at this time whether his retinal occlusion is due to atrial fibrillation or high-grade s tenosis of his right internal carotid artery. Patient stated that before starting full-dose anticoagulation, which was my recommendation, he would like to speak with his clerical assistant. In the meantime, it seems reasonable to treat his carotid disease and treat this much like an ischemic stroke with aspirin, Plavix for 21 days, and initiation of a statin. He states that he will follow- up with his clerical assistant, and I recommend that he also seek consultation as an outpatient with a vascular surgeon to discuss his high-grade stenosis in his right internal carotid artery. -given likely retinal artery occlusion based on history from ophthalmology evaluation, timing being 5 days ago with no further neurological symptoms, MRI at this time is not urgently necessary as treatment will not likely changes result of the results. MRI is unlikely to be able to potato picker his retinal artery occlusion as well. Discussed admission for further observation, imaging, or outpatient management and patient preferred outpatient management at this time. - follow up with PCP and clerical assistant for recommendation to start DOAC or warfarin. - follow up with vascular surgeon. 2. Elevated BP without a diagnosis of HTN - patient states BP at home is always near 120/80. I advised him to check his blood pressure reguarly at home, keep a log and follow up with PMD to possibly initiate blood pressure medications. 3. atrial fibrillation, unknown type but likely chronic. - CHADS2-Vasc is now 3. recommended DOAC but patient wishes to discuss with outpatient clerical assistant. - no need for rate control agents at this time. 4. Right Carotid artery stenosis - recommend outpatient follow up with vascular surgery. Please see CTA report above for details. Code: Full, surrogate decision maker is patient's spouse Dispo: safe for discharge home. I have utilized all available immediate resources to obtain, update, or review the patient's current medications. COVID-19 COVID-19 status: Negative Time Spent With Patient Critical Care time: I spent a total of [] minutes of critical care time on this patient's care today; this time is exclusive of procedural time.
[2021-10-03] MEDS: CLOPIDOGREL 75 MG TABLET PO (19:12)
== END 2021-10-03 19:20 | disposition home or self-care (01) ==
PROVIDERS: Emergency Medicine; Emergency Provider Physician Assistant; PCP Family Medicine
DX: I65.21 Occlusion and stenosis of right carotid artery (principal); I48.91 Unspecified atrial fibrillation; Z87.891 Personal history of nicotine dependence; Z20.822 Contact with and (suspected) exposure to COVID-19; Z79.01 Long term (current) use of anticoagulants
CPT/HCPCS: 36415; 70496; 70498; 80053; 80305; 81003; 81015; 82550; 82553; 82962; 84484; 85025; 87635; 93005; 93010; 99284; C9803; Q9967

== ENCOUNTER → 2025-02-13 09:52 | Outpatient (CLI) | payer MEDICARE, SELFPAY | LOC: RESP 09:54 | PROVIDERS: PCP Student in an Organized Health Care Education/Training Program; Referring Provider Student in an Organized Health Care Education/Training Program; Visit Provider Student in an Organized Health Care Education/Training Program | DX: R05.3 Chronic cough (principal); R06.02 Shortness of breath; Z87.891 Personal history of nicotine dependence; R94.2 Abnormal results of pulmonary function studies; J84.9 Interstitial pulmonary disease, unspecified; Z57.8 Occupational exposure to other risk factors | CPT/HCPCS: 94060; 94726; 94729 ==